=== PATIENT | female | born 1995 | race American Indian/Alaskan Native ===

== ENCOUNTER 2021-10-07 13:23 | Emergency (ER) | payer MEDICAID, OTHER ==
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
[2021-10-07] MEDS ORDERED: Pantoprazole 40 MG Vial IVPUSH SCH (14:00)
[2021-10-07 14:10] LABS: CHLORIDE,CL 107 mEq/L (98-106); SODIUM,NA 141 mEq/L (136-145)
[2021-10-07] MEDS ORDERED: Sucralfate 1 GM Tab PO SCH (16:00)
== END 2021-10-07 14:35 | disposition home or self-care (01) ==
LOC: CC.ED 13:23
DX: K29.00 Acute gastritis without bleeding (principal); Z72.0 Tobacco use
CPT/HCPCS: 36415; 80053; 81001; 81025; 82150; 85025; 96374; 99284-25; A9270-GY; C9113